=== PATIENT | female | born 1995 ===

== ENCOUNTER 2023-08-15 05:25 | Day surgery (SDC) | payer OTHER ==
[~2023-08-15] VITALS: Ht 154.9 cm; Wt 53.5 kg
[~2023-08-15 05:25] MED LIST: CHILDREN'S ASPI81 MG PO; HYFIBER WI PO
[2023-08-15] MEDS ORDERED: HIBICLENS118 ML TOP (14:56)
[2023-08-15] MEDS ORDERED: CELECOXIB200 MG PO (14:56)
[2023-08-15] MEDS ORDERED: AMOX1TAB5 PO (14:56)
== END 2023-08-15 18:00 | disposition home or self-care (01) ==
LOC: CIR.AMB 05:25
PROVIDERS: ATTEND Surgery
DX: K60.3 Anal fistula (principal); K60.1 Chronic anal fissure; Z20.822 Contact with and (suspected) exposure to COVID-19